=== PATIENT | female | born 1990 | race Caucasian/White ===

== ENCOUNTER 2021-11-05 08:36 | Inpatient (IN) | payer SELFPAY ==
[2021-11-05] VITALS (16 sets, daily range): BP systolic 90–141; BP diastolic 53–76
[~2021-11-05] VITALS: Ht 161 cm; Wt 65.5 kg
[2021-11-05 09:30] LABS: BILIRUBIN,URINE NEGATIVE (NEGATIVE); CLARITY,URINE CLEAR; COLOR,URINE YELLOW; GLUCOSE, URINE (UA) NEGATIVE (NEGATIVE); KETONES,URINE NEGATIVE (NEGATIVE); LEUKOCYTE ESTERASE ,URINE 1+ (NEGATIVE); NITRITE,URINE NEGATIVE (NEGATIVE); PH,URINE 6.5 (5-9); PROTEIN,URINE NEGATIVE (NEGATIVE)
[2021-11-05] MEDS ORDERED: OXYTOCIN PRE-MIX DRIP 500 ML IV ONE (09:32)
[2021-11-05 10:00] LABS: BACTERIA,URINE MODERATE /HPF; RBC,URINE 50-100 /HPF
[2021-11-05] MEDS ORDERED: MEPIVACAINE (CARBOCAINE) 2% 50 ML VIAL ONE (10:25)
[2021-11-05 10:42] LABS: BASOPHILS % (AUTO) 0 % (0-10); EOSINOPHILS # (AUTO) 0.4 10^3/uL (0.0-0.3); EOSINOPHILS % (AUTO) 3 % (0-10); HEMATOCRIT 35 % (35-52); HEMOGLOBIN 11.7 g/dL (11.5-16.0); LYMPHOCYTES # (AUTO) 2.1 10^3/uL (1.0-4.0); LYMPHOCYTES % (AUTO) 15 % (12-44); MEAN CORPUSCULAR HEMOGLOBIN 29 pg (25-34); MEAN CORPUSCULAR HGB CONC 33 g/dL (32-36); MEAN CORPUSCULAR VOLUME 88 fL (80-99); MEAN PLATELET VOLUME 11.8 fL (9.0-12.2); MONOCYTES % (AUTO) 7 % (0-12); NEUTROPHILS # (AUTO) 10.1 10^3/uL (1.8-7.8); NEUTROPHILS % (AUTO) 74 % (42-75); PLATELET COUNT 224 10^3/uL (130-400); WHITE BLOOD COUNT 13.8 10^3/uL (4.3-11.0)
[2021-11-05] MEDS ORDERED: MEPIVACAINE (CARBOCAINE) 2% 50 ML VIAL INJ PRN (10:45)
[2021-11-05] MEDS ORDERED: NALOXONE 0.4 MG/ML 1 ML (NARCAN) VIAL IV PRN (12:30)
[2021-11-05] MEDS ORDERED: MEASLES,MUMPS,RUBELLA 1 EA INJ SQ ONE (12:30)
[2021-11-05] MEDS ORDERED: TETANUS,DIPTH,PERTUSS P/F (BOOSTRIX) 0.5 ML VIAL IM ONE (12:30)
[2021-11-05] MEDS ORDERED: OXYTOCIN PRE-MIX DRIP 500 ML IV SCH (12:30)
[2021-11-05] MEDS ORDERED: WITCH HAZEL(TUCKS) 40 EA JAR TOP PRN (12:30)
[2021-11-05] MEDS ORDERED: BENZOCAINE/MENTHOL (DERMOPLAST) 56 ML CAN TP PRN (12:30)
--- NOTE | 2021-11-05 12:32 | History & Physical-OB ---
OB - Chief Complaint & HPI Date/Time Date of Admission: Date of Admission: Nov 05, 2021 at 10:34 Date seen by a Provider: Nov 05, 2021 Time Seen by a Provider: 10:15 Chief Complaint/History OB-Reason for Admission/Chief: Onset of Labor Hx : 2 Hx Para: 1 Expected Date of Delivery: Nov 05, 2021 Gestational Age in Weeks: 40 Gestational Age in Days: 0 Other reason for admission: L&D Admission Nurse Assessment Rev: Yes History of Labs GBS negative Allergies and Home Medications Allergies Coded Allergies: No Known Drug Allergies (Unverified , 11/05/21) Patient Home Medication List Home Medication List Reviewed: Yes OB - History Hx of Present Care: Yes Ultrasounds: Normal mid trimester US Obstetrical Complications: None Medical Complications: None Patient Past Medical History no chronic medical problems OB - Admission Exam Physical Exam HEENT: Moist Membranes Heart: Rhythm Normal Lungs: Clear Abdomen: Gravid Cervical Dilatation: 9cm Effacement: 100% Station: -3 Membranes: Ruptured Amniotic Fluid: Clear Heart Rate: 140's Accelerations: Accelerations Present Contractions on Admission: < 5 Minutes Apart Intensity: Moderate Labs Laboratory Tests Test 11/05/21 09:00 11/05/21 09:40 Range/Units Urine Color YELLOW Urine Clarity CLEAR Urine pH 6.5 5-9 Urine Specific [place] 1.025 H 1.016-1.022 Urine Protein NEGATIVE NEGATIVE Urine Glucose (UA) NEGATIVE NEGATIVE Urine Ketones NEGATIVE NEGATIVE Urine Nitrite NEGATIVE NEGATIVE Urine Bilirubin NEGATIVE NEGATIVE Urine Urobilinogen 0.2 < = 1.0 MG/DL Urine Leukocyte Esterase 1+ H NEGATIVE Urine RBC (Auto) 3+ H NEGATIVE Urine RBC 50-100 H /HPF Urine WBC 10-25 H /HPF Urine Squamous Epithelial Cells 2-5 /HPF Urine Crystals NONE /LPF Urine Bacteria MODERATE H /HPF Urine Casts NONE /LPF Urine Mucus NEGATIVE /LPF Urine Culture Indicated CULTURE PENDING White Blood Count 13.8 H 4.3-11.0 10^3/uL Red Blood Count 4.02 3.80-5.11 10^6/uL Hemoglobin 11.7 11.5-16.0 g/dL Hematocrit 35 35-52 % Mean Corpuscular Volume 88 80-99 fL Mean Corpuscular Hemoglobin 29 25-34 pg Mean Corpuscular Hemoglobin Concent 33 32-36 g/dL Red Cell Distribution Width 13.2 10.0-14.5 % Platelet Count 224 130-400 10^3/uL Mean Platelet Volume 11.8 9.0-12.2 fL Immature Granulocyte % (Auto) 1 % Neutrophils (%) (Auto) 74 42-75 % Lymphocytes (%) (Auto) 15 12-44 % Monocytes (%) (Auto) 7 0-12 % Eosinophils (%) (Auto) 3 0-10 % Basophils (%) (Auto) 0 0-10 % Neutrophils # (Auto) 10.1 H 1.8-7.8 10^3/uL Lymphocytes # (Auto) 2.1 1.0-4.0 10^3/uL Monocytes # (Auto) 1.0 0.0-1.0 10^3/uL Eosinophils # (Auto) 0.4 H 0.0-0.3 10^3/uL Basophils # (Auto) 0.0 0.0-0.1 10^3/uL Immature Granulocyte # (Auto) 0.2 H 0.0-0.1 10^3/uL OB - Assessment/Plan/Diagnosis Assessment Assessment: active labor (at term 40 weeks.) Admission Dx 1. IUP at term 40 weeks. Admission Status: Inpatient Order (span 2 midnights) Reason for Inpatient Admission: L&D Plan Plan: Expectant Management Other Plan Soon to deliver HITESH FRANCISCO MD Nov 05, 2021 12:32
--- NOTE | 2021-11-05 12:36 | OB Labor & Delivery Record ---
L&D History Date of Service Date of Service: Nov 05, 2021 History Expected Date of Delivery: Nov 05, 2021 Gestational Age in Weeks: 40 Hx : 2 Hx Para: 2 Complications Events: Routine care Operative Indications (Cesarea: N/A-Vaginal Delivery Intrapartal Events: None L&D Stage1 Stage One Onset of Labor - Date: Nov 05, 2021 Onset of Labor - Time: 09:00 Monitors and Tracing Monitor Mode: External Monitor Accelerations: None Monitor Decelerations: Variable Station: -3 Halfway Variability: Average (6-10) Short Term Variability: Present Presentation: Vertex Signs of Distress by FHT Signs of Distress no Rupture of Membranes Spontaneous Ruture of Membrane: Yes Amniotic Membrane Rupture Time: 10:00 Amniotic Membrane Fluid Desc.: Clear Vaginal Bleeding Description: None Induction/Anesthesia Medications none L&D Stage2 Stage Two Stage II Date: Nov 05, 2021 Stage II Time: 10:22 Monitors and Tracing Monitor Mode: External Monitor Accelerations: Uniform Monitor Decelerations: Variable Halfway Variability: Average (6-10) Position: Right Occiput Anterior Presentation: Vertex Signs of Distress by FHT Signs of Distress no Cord Descript/Complications Cord Vessel Description: 3 Vessels Delivery Type Infant Delivery Method: Spontaneous Vaginal Anterior Shoulder: Right Episiotomy/Perineal Laceration [place](s)/Extensions: No Episiotomy Description: Perineal Extension/lac Sutures Used: Vicryl Condition of Delivery 1 minute Comment: 9 5 minute Comment: 9 Condition of Condition of Infant: Living Exam: No Observed Abnormalities Resuscitation Resuscitation: N/A - Spontaneous Resp L&D Stage3 Stage Three Stage III Date: Nov 05, 2021 Stage III Time: 10:29 Placenta Delivery Placenta Delivery: Spontaneous Delivery Summary Summary Estimated blood loss (mL): 300 Condition of Delivery Examined: Cervix Examined Post Hemorrhage: No Intervention Required none other than uterine massage HITESH FRANCISCO MD Nov 05, 2021 12:36
[2021-11-05] MEDS ORDERED: CATHETER FLUSH 10 ML SYR IV SCH (14:00)
[2021-11-05] MEDS: IBUPROFEN 600 MG (MOTRIN) TAB PO SCH ×2 (14:13→20:06)
[2021-11-05] MEDS: ACETAMINOPHEN 500 MG TAB (TYLENOL) PO SCH ×2 (14:14→20:06)
[2021-11-05] MEDS: CATHETER FLUSH 10 ML SYR IV SCH ×2 (19:59→20:06)
[2021-11-05] MEDS: DOCUSATE SODIUM 100 MG (COLACE) CAP PO SCH (20:06)
[2021-11-06 02:20] VITALS: BP 96/57
[2021-11-06] MEDS: IBUPROFEN 600 MG (MOTRIN) TAB PO SCH ×2 (02:21→08:24)
[2021-11-06] MEDS: ACETAMINOPHEN 500 MG TAB (TYLENOL) PO SCH (02:21)
[2021-11-06 06:00] VITALS: BP 98/57
[2021-11-06] MEDS: CATHETER FLUSH 10 ML SYR IV SCH (06:19)
[2021-11-06 06:25] LABS: BASOPHILS # (AUTO) 0.1 10^3/uL (0.0-0.1); BASOPHILS % (AUTO) 0 % (0-10); EOSINOPHILS # (AUTO) 0.7 10^3/uL (0.0-0.3); EOSINOPHILS % (AUTO) 5 % (0-10); HEMATOCRIT 32 % (35-52); HEMOGLOBIN 10.6 g/dL (11.5-16.0); LYMPHOCYTES % (AUTO) 21 % (12-44); MEAN CORPUSCULAR HEMOGLOBIN 29 pg (25-34); MEAN CORPUSCULAR HGB CONC 33 g/dL (32-36); MEAN CORPUSCULAR VOLUME 88 fL (80-99); MEAN PLATELET VOLUME 11.7 fL (9.0-12.2); MONOCYTES % (AUTO) 7 % (0-12); NEUTROPHILS # (AUTO) 9.7 10^3/uL (1.8-7.8); NEUTROPHILS % (AUTO) 67 % (42-75); PLATELET COUNT 215 10^3/uL (130-400); WHITE BLOOD COUNT 14.6 10^3/uL (4.3-11.0)
[2021-11-06 08:24] VITALS: BP 98/56
[2021-11-06] MEDS: DOCUSATE SODIUM 100 MG (COLACE) CAP PO SCH (08:25)
[2021-11-06] MEDS ORDERED: IBUP-844 PO (09:55)
--- NOTE | 2021-11-06 09:58 | Short Stay Summary ---
Discharge Summary Hospital Course Final Diagnosis: s/p ; episiotomy repair Hospital Course Date of Admission: Nov 05, 2021 at 10:34 Admission Diagnosis : 1. at 40 wk spontaneous labor Family Physician/Provider: Hardik Date of Discharge: 11/06/21 Discharge Diagnosis: 1. G2 now P2 at 40 wk spontaneous labor s/p 2. episiotomy repair Hospital Course: Routine course Labs and Pending Lab Test: Laboratory Tests 11/06/21 05:57: White Blood Count 14.6H, Red Blood Count 3.65L, Hemoglobin 10.6L, Hematocrit 32L , Mean Corpuscular Volume 88, Mean Corpuscular Hemoglobin 29, Mean Corpuscular Hemoglobin Concent 33, Red Cell Distribution Width 13.4, Platelet Count 215, Mean Platelet Volume 11.7, Immature Granulocyte % (Auto) 1, Neutrophils (%) (Auto) 67, Lymphocytes (%) (Auto) 21, Monocytes (%) (Auto) 7, Eosinophils (%) (Auto) 5, Basophils (%) (Auto) 0, Neutrophils # (Auto) 9.7H, Lymphocytes # (A uto) 3.0, Monocytes # (Auto) 1.0, Eosinophils # (Auto) 0.7H, Basophils # (Auto) 0.1, Immature Granulocyte # (Auto) 0.1 Assessment/Pt Instructions Follow up at [facility] in 6 weeks. Discharge Instructions Discharge Diet: No Restrictions Activity as Tolerated: Yes Discharge Physical Examination General Appearance: Alert, Oriented X3, Cooperative Psych/Mental Status: Mood NL Allergies: Coded Allergies: No Known Drug Allergies (Unverified , 11/05/21) Discharge Summary Date of Admission Nov 05, 2021 at 10:34 Date of Discharge CAITLIN DOMINGUEZ DO Nov 06, 2021 09:58
== END 2021-11-06 13:50 | disposition home or self-care (01) | DRG 807 ==
LOC: WSo 08:36 → LDRP 08:37 → WSo 10:34 → LDRP 17:02
PROVIDERS: ADMIT Family Medicine; ATTEND Family Medicine
PROC: 10E0XZZ Delivery of Products of Conception, External Approach (ICD-10-PCS; principal; 2021-11-05)
PROC: 0HQ9XZZ Repair Perineum Skin, External Approach (ICD-10-PCS; 2021-11-05)
DX: O48.0 Post-term pregnancy (principal); Z37.0 Single live birth; O70.0 First degree perineal laceration during delivery; Z3A.40 40 weeks gestation of pregnancy
CPT/HCPCS: 36415; 81000; 85025; 86850; 86900; 86901; 87088; 99212